=== PATIENT | female | born 1985 | race Asian ===

== ENCOUNTER 2018-08-05 17:14 | Emergency (ER) | payer MEDICAID ==
[~2018-08-05] VITALS: Ht 177.8 cm; Wt 66.0 kg
[2018-08-05 17:27] VITALS: BP 120/81
== END 2018-08-05 22:31 | disposition left against medical advice (07) ==
LOC: ER 17:14
DX: Z53.21 Procedure and treatment not carried out due to patient leaving prior to being seen by health care provider (principal)
CPT/HCPCS: 81025